=== PATIENT | female | born 1980 | race Caucasian/White ===

== ENCOUNTER 2017-05-05 16:46 | Emergency (ER) | payer OTHER ==
[~2017-05-05] VITALS: Ht 162.6 cm; Wt 100.0 kg
[2017-05-05 16:49] VITALS: BP 124/82; PULSE 73; RESP 20; O2SAT 99
[2017-05-05 19:29] VITALS: BP 142/81; PULSE 61; O2SAT 99
== END 2017-05-05 21:25 | disposition left against medical advice (07) ==
LOC: SED 16:46
DX: M54.2 Cervicalgia (principal); Z53.21 Procedure and treatment not carried out due to patient leaving prior to being seen by health care provider